=== PATIENT | male | born 1990 | race African-American/Black ===

== ENCOUNTER → 2016-10-23 | Outpatient (CLI) | payer OTHER ==
--- NOTE | 2016-10-23 12:43 | DIAGNOSTIC IMAGING REPORT ---
C-SPINE ROUTINE 4 OR 5 VIEWS CLINICAL HISTORY: Left hand numbness and tingling. COMPARISON STUDY: No previous studies for comparison. FINDINGS: Visualization of the cervical spine is adequate. There is reversal of the normal cervical lordosis. Facet joints are intact. There is no fracture or suspicious lesion. Disc spaces are preserved. IMPRESSION: Reversal of normal cervical lordosis. Otherwise, unremarkable cervical spine radiographs. Electronically signed by: Rodney Morfin M.D. 10/23/2016 12:41 PM Dictated Date/Time: 10/23/2016 12:40 PM
--- NOTE | 2016-10-23 12:46 | DIAGNOSTIC IMAGING REPORT ---
CHEST 2 VIEWS ROUTINE CLINICAL HISTORY: R07.89 dyspnea COMPARISON STUDY: No previous studies for comparison. FINDINGS: The bones soft tissues and hemidiaphragms are normal. The cardiomediastinal silhouette is normal. The lungs are clear. The pulmonary vasculature is normal. IMPRESSION: Negative chest. Electronically signed by: Keith Pollack M.D. 10/23/2016 12:44 PM Dictated Date/Time: 10/23/2016 12:44 PM
== END | disposition home or self-care (01) ==
LOC: C.RAD1850 12:12
PROVIDERS: ATTEND Family Medicine
DX: R07.89 Other chest pain (principal); R20.2 Paresthesia of skin